=== PATIENT | male | born 1970 | race Caucasian/White ===

== ENCOUNTER 2025-02-11 18:38 | Inpatient (IN) | payer OTHER ==
[~2025-02-11] VITALS: Ht 167.6 cm; Wt 75.0 kg
[2025-02-11 19:32] LABS: PLATELET COUNT, AUTOMATED 269 10^3/uL (150-450)
[2025-02-11 19:48] LABS: AMPHETAMINES LEVEL URINE NEGATIVE (NEGATIVE); BARBITURATES URINE NEGATIVE (NEGATIVE); BENZODIAZEPINES URINE NEGATIVE (NEGATIVE); CANNABINOIDS URINE NEGATIVE (NEGATIVE); COCAINE METABOLITE URINE NEGATIVE (NEGATIVE); METHADONE URINE NEGATIVE (NEGATIVE); OPIATES URINE NEGATIVE (NEGATIVE); PHENCYCLIDINE URINE NEGATIVE (NEGATIVE)
[2025-02-11 19:52] LABS: ALT/SGPT 19 U/L (7.0-40); AST/SGOT 21 U/L (<34); CALCIUM LEVEL 8.8 MG/DL (8.5-10.1); CARBON DIOXIDE LEVEL 25 MMOL/L (20-31); CHLORIDE LEVEL 105 MMOL/L (98-107); CREATININE FOR GFR 0.90 MG/DL (0.70-1.30); GLOMERULAR FILTRATION RATE > 90.0 (>56); POTASSIUM SERUM 4.0 MMOL/L (3.5-5.1); SALICYLATE LEVEL < 3.0 MG/DL (<30); SODIUM LEVEL 140 MMOL/L (136-145)
[2025-02-11 19:54] LABS: ETHYL ALCOHOL (ETHANOL) < 0.003 % (0.000-0.010)
[2025-02-11] MEDS: NICOTINE POLACRILEX 2 MG GUM PO ONE (20:04)
[2025-02-11] MEDS ORDERED: MOM 30 ML SUSPENSION UDC PO PRN (21:10)
[2025-02-11] MEDS ORDERED: ACETAMINOPHEN 325 MG TAB PO PRN (21:10)
[2025-02-11] MEDS ORDERED: MAALOX 30 ML SUSP *UDC PO PRN (21:10)
[2025-02-11] MEDS ORDERED: IBUPROFEN 400 MG TAB PO PRN (21:10)
[2025-02-11] MEDS ORDERED: NICOTINE POLACRILEX 2 MG GUM PO PRN (21:15)
[2025-02-11] MEDS ORDERED: HALOPERIDOL 5 MG TAB PO PRN (21:15)
[2025-02-11 22:33] VITALS: BP 150/88; TEMP 98; O2SAT 96
[2025-02-12] MEDS: NICOTINE POLACRILEX 2 MG GUM PO PRN ×2 (00:07→18:55)
[2025-02-12] MEDS: QUEtiapine FUMARATE 50MG TAB PO ONE (00:27)
[2025-02-12] MEDS: OLANZapine 10 MG TAB PO SCH (10:04)
[2025-02-12] MEDS ORDERED: HALOPERIDOL 5 MG TAB PO PRN (10:10)
[2025-02-12] MEDS ORDERED: QUEtiapine FUMARATE 50MG TAB PO PRN (10:10)
[2025-02-12] MEDS ORDERED: HOME MED LIST COMPLETE! XX SCH (12:20)
[2025-02-12] MEDS: NEOSPORIN TOP OINT 15 GM TOP SCH (17:33)
[2025-02-12] MEDS: OLANZapine 5 MG TAB PO SCH (19:10)
[2025-02-12 20:45] VITALS: BP 150/88; TEMP 98; O2SAT 96
[2025-02-12] MEDS ORDERED: OLANZapine 5 MG TAB PO SCH (21:00)
[2025-02-13 06:22] VITALS: BP 143/90; TEMP 97.5; O2SAT 99
[2025-02-13] MEDS: OLANZapine 10 MG TAB PO SCH (08:36)
[2025-02-14 06:14] VITALS: BP 140/82; TEMP 98.1; O2SAT 98
[2025-02-14 15:28] VITALS: BP 145/85; TEMP 98.2; O2SAT 97
[2025-02-14] MEDS: LORazepam 1 MG TAB PO PRN (20:04)
[2025-02-15 06:30] VITALS: BP 158/98; TEMP 97.7; O2SAT 98
[2025-02-15] MEDS ORDERED: OLAN1TAB20 PO (08:29)
== END 2025-02-15 09:06 | disposition home or self-care (01) | DRG 751 ==
LOC: M ED 18:38 → M ED INP 21:09 → M PSY 22:02
PROVIDERS: ADMIT Student in an Organized Health Care Education/Training Program; ATTEND Psychiatry & Neurology Psychiatry
DX: F29 Unspecified psychosis not due to a substance or known physiological condition (principal); F25.0 Schizoaffective disorder, bipolar type; Z91.51 Personal history of suicidal behavior; Z87.820 Personal history of traumatic brain injury; Z81.3 Family history of other psychoactive substance abuse and dependence; Z56.0 Unemployment, unspecified; Z88.8 Allergy status to other drugs, medicaments and biological substances; F17.290 Nicotine dependence, other tobacco product, uncomplicated